=== PATIENT | female | born 1965 | race Caucasian/White ===

== ENCOUNTER → 2022-06-13 14:21 | Outpatient (BNVA) | payer MEDICARE, SELFPAY | PROVIDERS: PCP Nurse Practitioner Family; Visit Provider Nurse Practitioner Family | DX: J44.9 Chronic obstructive pulmonary disease, unspecified (principal); F32.A Depression, unspecified; F41.9 Anxiety disorder, unspecified; G47.00 Insomnia, unspecified; E78.5 Hyperlipidemia, unspecified; K21.9 Gastro-esophageal reflux disease without esophagitis; I10 Essential (primary) hypertension; N95.1 Menopausal and female climacteric states; K52.9 Noninfective gastroenteritis and colitis, unspecified; R30.0 Dysuria; R73.9 Hyperglycemia, unspecified; N39.0 Urinary tract infection, site not specified; F17.200 Nicotine dependence, unspecified, uncomplicated | CPT/HCPCS: 80053; 80061 ==

== ENCOUNTER → 2022-06-14 12:17 | Outpatient (BNVA) | payer MEDICARE, SELFPAY | PROVIDERS: PCP Nurse Practitioner Family; Visit Provider Nurse Practitioner Family | DX: J44.9 Chronic obstructive pulmonary disease, unspecified (principal); F41.9 Anxiety disorder, unspecified; F31.30 Bipolar disorder, current episode depressed, mild or moderate severity, unspecified; G47.00 Insomnia, unspecified; E78.5 Hyperlipidemia, unspecified; K21.9 Gastro-esophageal reflux disease without esophagitis; I10 Essential (primary) hypertension; N95.1 Menopausal and female climacteric states; K52.9 Noninfective gastroenteritis and colitis, unspecified; R30.0 Dysuria; R73.9 Hyperglycemia, unspecified; N39.0 Urinary tract infection, site not specified; F17.200 Nicotine dependence, unspecified, uncomplicated | CPT/HCPCS: 83036 ==

== ENCOUNTER → 2022-10-17 13:02 | Outpatient (BNVA) | payer MEDICARE, MEDICAID, SELFPAY | PROVIDERS: PCP Nurse Practitioner Family; Visit Provider Internal Medicine Pulmonary Disease | DX: J44.9 Chronic obstructive pulmonary disease, unspecified (principal); F17.210 Nicotine dependence, cigarettes, uncomplicated | CPT/HCPCS: 99204 ==

== ENCOUNTER 2022-10-28 15:28 | Emergency (ER) | payer MEDICARE, MEDICAID, SELFPAY ==
[2022-10-28 16:12] VITALS: BP 147/68; PULSE 81; RESP 18; TEMP 36.8; O2SAT 91; BMI 35.4
--- NOTE | 2022-10-28 16:27 | XRR_ITS ---
PROCEDURE INFORMATION: Exam: XR Left Knee Exam date and time: 10/28/2022 4:47 PM Age: 57 years old Clinical indication: Injury or trauma; Fall; Blunt trauma; Knee; Left; Injury details: History--fell 2 weeks ago and had some swelling the, not any better, sharp anterior pain; Additional info: Fall injury TECHNIQUE: Imaging protocol: Radiologic exam of the Left knee. Views: 3 views. COMPARISON: No relevant prior studies available. FINDINGS: Bones/joints: Moderate tricompartmental osteoarthritis of the knee. Soft tissues: Small suprapatellar knee joint effusion. XR/XR knee LT 3V* [id number] IMPRESSION: 1. Negative for fracture or dislocation. 2. Moderate tricompartmental osteoarthritis of the knee. 3. Small suprapatellar knee joint effusion.
--- NOTE | 2022-10-28 16:43 | W.ED.FALL ---
HPI - Fall General: Chief Complaint: Fall Stated Complaint: Left knee pain Time Seen by Provider: 10/28/22 16:25 History of Present Illness: Patient is a 57-year-old female comes to the ED with left knee pain. Patient says approximately 2 and half weeks ago she was walking her dog and it caused her to trip and fall. She fell onto her left knee and has been having pain in her left knee ever since. She states that she initially had a lot of swelling after fall but the swelling has improved and gone completely down. The pain has not changed at all and it still constant and worsens when she weightbears. She rates the pain currently a 4 out of 10. Associated symptoms-after fall: Denies abdominal pain, chest pain, headache(s), hematuria or neck pain Review of Systems Const: Denies: fever(s), chills or fatigue Eyes: Denies: change in vision or eye discomfort ENMT: Denies: throat pain, odynophagia, nasal discharge or nasal congestion Card: Denies: chest pain, palpitations, edema, swelling of feet/ankles, dyspnea on exertion or orthopnea Resp: Denies: dyspnea, productive cough or non-productive cough GI: Denies: abdominal pain, nausea, vomiting, diarrhea, constipation or hematochezia : Denies: flank pain, dysuria or hematuria Musc: Reports: extremity pain (Left knee) and limited range of motion (Left knee); Denies: neck pain, back pain or extremity swelling Skin/Breast: Denies: rash or new lesions Neuro: Denies: headache(s), numbness in extremities or weakness in extremities PFS ED PFSH: Medical History Anxiety Depression Smoker Social History Smoking and tobacco status: current every day smoker cigarettes Packs smoked per day: 2 Years cigarettes smoked: 52 [ Other cigarette details: Started at age 5] Physical Exam Const: COMMON NORMALS: patient oriented x3 HENMT: COMMON NORMALS: normocephalic HEAD & SCALP: normocephalic MOUTH: Normal oral and palatal mucosa present THROAT: posterior oropharynx normal and uvula midline Neck/C-Spine: COMMON NORMALS: supple GENERAL: Yes normal visual inspection Resp: COMMON NORMALS: normal respiratory effort, No retractions, No use of accessory muscles and clear to auscultation bilaterally AUSCULTATION: clear to auscultation bilaterally Cardio: COMMON NORMALS: regular rate, regular rhythm, S1 normal heart sound present, S2 normal heart sound present, No gallops present (Cardio), No clicks present (Cardio), No murmurs present (Cardio) and Peripheral pulses 2+ throughout RATE: regular rate RHYTHM: regular rhythm HEART SOUNDS: S1 normal heart sound present and S2 normal heart sound present PERIPHERAL PULSES: Peripheral pulses 2+ throughout GI: COMMON NORMALS: Normal to inspection, nondistended, normoactive bowel sounds present, Soft to palpation, non-tender and no masses PALPATION: Yes Soft to palpation : COMMON NORMALS: Yes no CVA tenderness BLADDER/KIDNEY EXAM: Yes no CVA tenderness Back/Pelvis: COMMON NORMALS: no CVA tenderness Extremity: NARRATIVE EXTREMITY EXAM: Left knee?no visible deformity, ecchymosis or swelling. Mild tenderness over the patella of the knee. Full range of motion. Neurovascular intact distally. No other acute findings noted. Neuro: COMMON NORMALS: patient oriented x3 GAIT: Yes Normal gait present Course Vital Signs: Vital signs: Vital Signs Temperature 98.3 F 10/28/22 16:12 Pulse Rate 81 10/28/22 16:12 Respiratory Rate 18 10/28/22 16:12 Blood Pressure 147/68 10/28/22 16:12 Pulse Oximetry 91 10/28/22 16:12 Oxygen Delivery Me thod 10/28/22 16:12 MDM - Fall Medical Decision Making Patient is a 57-year-old female comes to the ED with left knee pain. Patient says approximately 2 and half weeks ago she was walking her dog and it caused her to trip and fall. She fell onto her left knee and has been having pain in her left knee ever since. She states that she initially had a lot of swelling after fall but the swelling has improved and gone completely down Vitals are stable. Patient appears nontoxic and in no acute distress. Left knee?no visible deformity, ecchymosis or swelling. Mild tenderness over the patella of the knee. Full range of motion. Neurovascular intact distally. No other acute findings noted. X-ray of left knee shows no acute fractures or dislocations but does note some moderate dry compartmental osteoarthritis of the knee. I placed an order with case management for patient referred to Ortho for knee osteoarthritis. She was discharged home with a prescription for meloxicam. Return ED precautions given. Patient understood and agreed with plan. Lab Data Radiology Impressions Knee X-Ray 10/28/22 16:27 IMPRESSION: 1. Negative for fracture or dislocation. 2. Moderate tricompartmental osteoarthritis of the knee. 3. Small suprapatellar knee joint effusion. Discharge Plan Discharge Patient Disposition: Home Clinical Impression: Osteoarthritis of knee Qualifiers: Osteoarthritis type: primary Laterality: left Qualified Code(s): M17.12 - Unilateral primary osteoarthritis, left knee Condition: Stable Prescriptions: New meloxicam 15 mg tablet 15 mg PO DAILY PRN (Reason: pain) Qty: 20 0RF No Action ropinirole 1 mg tablet 1 mg PO DAILY baclofen 10 mg tablet 10 mg PO BID PRN (Reason: pain) tizanidine 4 mg capsule 4 mg PO TID PRN Bevespi Aerosphere 9-4.8 mcg HFA aerosol inhaler 2 puff inhalation BID Qty: 10.7 3RF Rx Instructions: ALTERNATIVE - STIALTO oxcarbazepine 300 mg tablet 300 mg PO BID albuterol sulfate [ProAir HFA] 90 mcg/actuation HFA aerosol inhaler 2 puff inhalation QID PRN (Reason: shortness of breath or wheezing) Qty: 8.5 6RF Latuda 60 mg tablet 60 mg PO DAILY Rx Instructions: must administer with food (at least 350 calories) buspirone 15 mg tablet 15 mg PO TID esomeprazole magnesium [Nexium] 40 mg capsule,delayed release(DR/EC) 40 mg PO DAILY hydroxyzine HCl 50 mg tablet 50 mg PO TID PRN (Reason: itching) duloxetine 60 mg capsule,delayed release(DR/EC) 60 mg PO DAILY doxepin 50 mg capsule 50 mg PO DAILY Rx Instructions: 1-2 AT HS PRN SLEEP diphenhydramine HCl [Benadryl] 25 mg capsule 25 mg PO TID PRN atorvastatin [Lipitor] 40 mg tablet 40 mg PO DAILY 90 Days Qty: 90 1RF montelukast [Singulair] 10 mg tablet 10 mg PO DAILY 90 Days Qty: 90 1RF nebivolol [Bystolic] 5 mg tablet 5 mg PO DAILY 90 Days Qty: 90 1RF Premarin 0.625 mg tablet 0.625 mg PO DAILY 90 Days Qty: 90 1RF dicyclomine 10 mg capsule 10 mg PO TID 30 Days Qty: 90 1RF clonidine HCl 0.1 mg tablet 0.1 mg PO .QHS 90 Days Qty: 90 1RF gabapentin 800 mg tablet 800 mg PO TID Qty: 90 0RF Discharge Orders: Discharge ED (Routine); Ordered 10/28/22 Ordered By: Cesar Norris Referrals: Poppy Carty APN [Primary Care Provider] - Discharge Diet: Regular Discharge Activity: Increase activity as tolerated Patient Instructions: Osteoarthritis (DC) Activity Restrictions/Additional Instructions: Follow-up with medical provider as directed. Case management should contact you in the next several days to set up an appoint with Ortho for follow-up. Take medications as prescribed. Return to the ER or your medical provider if condition worsens. Please read and understand discharge instructions. Thank you for choosing [facility] for your healthcare needs today. Please realize this is an emergency room and that we are providing you with a medical screening exam and this may not be complete and all inclusive of all the testing and or work up that you may need to determine your ailment or severity of your illness. It is very important that you follow up as instructed or that you return to the Emergency Department should you have concerns or if your condition changes or worsens in any way. Coding Level of Care Code ED Director Of Business Services for Blayne Villafana Exam Comprehensive
[2022-10-28] MEDS: ketorolac 60 mg/2 mL INJ IM (16:52)
--- NOTE | 2022-10-31 09:59 | DCPLANNER ---
Addendum entered by Araceli Bedoya 12/06/22 17:38: Patient had follow up appointment with ortho - patient did attend appointment. Addendum entered by Araceli eBdoya 11/03/22 16:42: Patient has a follow up appointment scheduled for Monday, November 28, 2022 at 7:[address] oNrris at ortho. Clinic will call patient with appointment information. Original Note: campaign manager had message to schedule a follow up appointment for patient with ortho. campaign manager sent patients information to the front office staff at ortho. Patients information will be printed and reviewed. Clinic will call patient with appointment information.
== END 2022-10-28 17:27 | disposition home or self-care (01) ==
PROVIDERS: Emergency Provider Physician Assistant; PCP Nurse Practitioner Family
DX: M17.12 Unilateral primary osteoarthritis, left knee (principal); F17.210 Nicotine dependence, cigarettes, uncomplicated
CPT/HCPCS: 73562; 96372; 99284; J1885

== ENCOUNTER 2022-11-02 13:09 | Emergency (ER) | payer MEDICARE, MEDICAID, SELFPAY ==
[2022-11-02 13:19] VITALS: BP 125/75; PULSE 74; RESP 16; TEMP 37.2; O2SAT 95; BMI 35.4
[2022-11-02 13:24] VITALS: BP 125/75; PULSE 74; RESP 16; TEMP 37.2; O2SAT 95
--- NOTE | 2022-11-02 13:39 | XRR_ITS ---
PROCEDURE INFORMATION: Exam: XR Left Hip Exam date and time: 11/02/2022 1:51 PM Age: 57 years old Clinical indication: Injury or trauma; Fall; Blunt trauma (contusions or hematomas); Left; Hip; Additional info: Fall, hip pain TECHNIQUE: Imaging protocol: Radiologic exam of the Left hip. Views: 2 or 3 views hip with pelvis when performed. COMPARISON: No relevant prior studies available. FINDINGS: Bones/joints: There are minimal degenerative changes left hip joint otherwise osseous structures and joint surfaces are unremarkable. There is no fracture, malalignment or underlying osseous lesion evident. Soft tissues: Unremarkable. XR/XR hip LT 2-3V wo/w pel* [id number] IMPRESSION: Minimal degenerative changes left hip joint otherwise unremarkable exam.
--- NOTE | 2022-11-02 13:39 | XRR_ITS ---
PROCEDURE INFORMATION: Exam: XR Left Knee Exam date and time: 11/02/2022 1:51 PM Age: 57 years old Clinical indication: Injury or trauma; Fall; Blunt trauma; Knee; Left; Additional info: Fall, pain TECHNIQUE: Imaging protocol: Radiologic exam of the Left knee. Views: 3 views. COMPARISON: CR XR knee LT 3V* [id number] 10/28/2022 4:47 PM FINDINGS: Bones/joints: There are mild degenerative changes involving the medial knee compartment with some joint space narrowing and subchondral sclerosis. Stable small spur arising from the inferior pole of patella. Remainder of the joint surfaces are preserved. No fracture or malalignment. Soft tissue: No significant joint effusion. XR/XR knee LT 3V* [id number] IMPRESSION: Mild degenerative changes medial knee compartment. No acute abnormalities.
--- NOTE | 2022-11-02 13:41 | ED_ITS ---
HPI - Extremity Injury (Lower) General: Chief Complaint: Extremity Injury, Lower Stated Complaint: right side hip and kinee in pain. Time Seen by Provider: 11/02/22 13:32 Source: patient Mode of arrival: ambulatory Limitations: no limitations History of Present Illness: StatesPatient is a 57-year-old female who presents to ED today with a complaint of left knee and left hip pain after a fall 2 days ago. She fell because her dog tripped her. Patient was seen in our ED on 10/28 with a very similar story of her puppy tripping her. She had x-rays of the left knee performed which showed no fracture but did show tricompartment osteoarthritis. Patient was given meloxicam. She states these did not seem to help with her pain. Patient has been ambulatory without assistance on her leg. She denies striking her head, LOC, neck or back pain. MD complaint: hip injury and knee injury Onset (ago): day(s) Place: street/outdoors Severity: moderate Relieving factors: immobilization Exacerbating factors: weight bearing, movement and palpation Context: fall Associated symptoms: Reports no associated symptoms Other symptoms: none Review of Systems Musc: Reports: joint pain (L knee) and joint swelling (L knee); Denies: neck pain, back pain, extremity pain or extremity swelling Neuro: Denies: headache(s), numbness in extremities, weakness in extremities, sensory changes or difficulty walking PFSH ED 2 PFSH: Medical History Anxiety Depression Smoker Social History Smoking and tobacco status: current every day smoker cigarettes Packs smoked per day: 2 Years cigarettes smoked: 52 [ Other cigarette details: Started at age 5] Physical Exam Const: COMMON NORMALS: no acute distress, patient oriented x3, no limitations, alert and well nourished GENERAL APPEARANCE: cooperative Neck/C-Spine: CERVICAL SPINE: Yes cervical ROM normal, No pain with cervical ROM and No Cervical spine tenderness Back/Pelvis: COMMON NORMALS: thoracic and lumbar spine normal to inspection, no thoracic nor lumbar tenderness and thoraco-lumbar ROM normal Extremity: COMMON NORMALS: full ROM, capillary refill normal, no calf tenderness and no pedal edema GENERAL: Yes normal exam except as noted RIGHT LOWER EXTREMITY: Yes hip joint (small area of ecchymosis noted) and Yes knee joint (pain seems exaggerated in regards to clinical findings) Right knee: Yes ROM (normal) and Yes neurovascular exam (normal) Neuro: COMMON NORMALS: patient oriented x3, moves all extremities, no focal motor deficits, no sensory deficits noted and gait normal SENSORIUM/ORIENTATION: Yes alert Course Vital Signs: Vital signs: Vital Signs Temperature 98.9 F 11/02/22 13:24 Pulse Rate 74 11/02/22 13:24 Respiratory Rate 16 11/02/22 13:24 Blood Pressure 125/75 11/02/22 13:24 Pulse Oximetry 95 11/02/22 13:24 Oxygen Delivery Me thod 11/02/22 13:24 MDM - Extremity Injury (Lower) Medical Decision Making XRs negative. Patient can follow up with PCP in 1-2 weeks if pain persists. Lab Data Radiology Impressions Hip/Pelvis X-Ray 11/02/22 13:39 IMPRESSION: Minimal degenerative changes left hip joint otherwise unremarkable exam. Knee X-Ray 11/02/22 13:39 IMPRESSION: Mild degenerative changes medial knee compartment. No acute abnormalities. Discharge Plan Discharge Patient Disposition: Home Clinical Impression: Fall on same level from tripping Contusion of left hip Qualifiers: Encounter type: initial encounter Qualified Code(s): S70.02XA - Contusion of left hip, initial encounter Contusion of left knee Qualifiers: Encounter type: initial encounter Qualified Code(s): S80.02XA - Contusion of left knee, initial encounter Condition: Stable Prescriptions: New acetaminophen-codeine 300-30 mg tablet 1 tab PO Q6H PRN (Reason: pain) Qty: 12 0RF No Action ropinirole 1 mg tablet 1 mg PO DAILY baclofen 10 mg tablet 10 mg PO BID PRN (Reason: pain) tizanidine 4 mg capsule 4 mg PO TID PRN Bevespi Aerosphere 9-4.8 mcg HFA aerosol inhaler 2 puff inhalation BID Qty: 10.7 3RF Rx Instructions: ALTERNATIVE - STIALTO oxcarbazepine 300 mg tablet 300 mg PO BID albuterol sulfate [ProAir HFA] 90 mcg/actuation HFA aerosol inhaler 2 puff inhalation QID PRN (Reason: shortness of breath or wheezing) Qty: 8.5 6RF Latuda 60 mg tablet 60 mg PO DAILY Rx Instructions: must administer with food (at least 350 calories) buspirone 15 mg tablet 15 mg PO TID esomeprazole magnesium [Nexium] 40 mg capsule,delayed release(DR/EC) 40 mg PO DAILY hydroxyzine HCl 50 mg tablet 50 mg PO TID PRN (Reason: itching) duloxetine 60 mg capsule,delayed release(DR/EC) 60 mg PO DAILY doxepin 50 mg capsule 50 mg PO DAILY Rx Instructions: 1-2 AT HS PRN SLEEP diphenhydramine HCl [Benadryl] 25 mg capsule 25 mg PO TID PRN atorvastatin [Lipitor] 40 mg tablet 40 mg PO DAILY 90 Days Qty: 90 1RF montelukast [Singulair] 10 mg tablet 10 mg PO DAILY 90 Days Qty: 90 1RF nebivolol [Bystolic] 5 mg tablet 5 mg PO DAILY 90 Days Qty: 90 1RF Premarin 0.625 mg tablet 0.625 mg PO DAILY 90 Days Qty: 90 1RF dicyclomine 10 mg capsule 10 mg PO TID 30 Days Qty: 90 1RF clonidine HCl 0.1 mg tablet 0.1 mg PO .QHS 90 Days Qty: 90 1RF gabapentin 800 mg tablet 800 mg PO TID Qty: 90 0RF meloxicam 15 mg tablet 15 mg PO DAILY PRN (Reason: pain) Qty: 20 0RF Discharge Orders: Discharge ED (Routine); Ordered 11/02/22 Ordered By: Latonia Fields Referrals: Carty,Poppy, OPERATIONS TECHNICIAN [Primary Care Provider] - Patient Instructions: Opioid Safety, Pain Management Coding Level of Care Code ED Trust Vault Clerk for Blayne Villafana
[2022-11-02 14:42] VITALS: BP 123/78; PULSE 73; RESP 16; O2SAT 96
== END 2022-11-02 14:43 | disposition home or self-care (01) ==
PROVIDERS: Emergency Provider Physician Assistant; PCP Nurse Practitioner Family
DX: S70.02XA Contusion of left hip, initial encounter (principal); S80.02XA Contusion of left knee, initial encounter; W01.0XXA Fall on same level from slipping, tripping and stumbling without subsequent striking against object, initial encounter; F17.210 Nicotine dependence, cigarettes, uncomplicated
CPT/HCPCS: 73502; 73562; 99283

== ENCOUNTER 2022-11-25 06:14 | Outpatient (CLI) | payer MEDICARE, MEDICAID, SELFPAY ==
--- NOTE | 2022-11-25 06:30 | CT_ITS ---
WS: [id number] CT CHEST WITHOUT INTRAVENOUS CONTRAST HISTORY: f/u right medial segment consolidation seen in 03/16 CT TECHNIQUE: Contiguous 5 mm axial imaging performed on the thorax. Coronal and sagittal reformats are submitted. All CT scans at [facility] use at least one of these dose optimization techniques: automated exposure control; mA and/or kV adjustment per patient size (includes targeted exams where dose is matched to clinical indication); or iterative reconstruction. CONTRAST: None DLP: 413.91 mGy.cm COMPARISON: 02/23/2022 Lungs and central airway: Improved aeration RIGHT middle lobe. Very minimal persistent atelectasis an d pleural thickening along the fissures. There is still an area of subsegmental atelectasis and bronc hial dilatation involving the medial inferior segment of the RIGHT upper lobe. Very mild atelectasis extends along the RIGHT minor fissure. Subsegmental areas of very thin linear atelectasis LEFT lower lobe. Very thin linear atelectasis RIGHT lower lobe at the lung base. No mass or nodules. No pneumoni a. Pleura: Normal. No pleural effusion. Heart and pericardium: Normal size heart with no pericardial effusion. Mediastinum and tsering: No mediastinum or hilar adenopathy. Vessels: Minimal atherosclerotic plaque thoracic aorta. Normal size pulmonary artery. Chest wall and lower neck: No soft tissue masses. Upper abdomen: Prior cholecystectomy. Osseous structures: Mild increase in thoracic kyphosis. CT/CT chest wo con [id number] IMPRESSION: 1. Improved atelectasis RIGHT middle lobe. Minimal pleural thickening along th e fissure. 2. Mild bronchial wall thickening and bronchial dilatation in the medial segme nt of the inferior RIGHT upper lobe. 3. Additional bandlike areas of atelectasis in the lower lung da silva. 4. No pneumonia. 5. Prior cholecystectomy.
== END 2022-11-25 06:15 | disposition home or self-care (01) ==
LOC: RAD 06:15
PROVIDERS: PCP Nurse Practitioner Family; Visit Provider Internal Medicine Pulmonary Disease
DX: R91.8 Other nonspecific abnormal finding of lung field (principal); J98.11 Atelectasis
CPT/HCPCS: 71250

== ENCOUNTER → 2022-11-28 07:36 | Outpatient (BNVA) | payer MEDICARE, MEDICAID, SELFPAY | PROVIDERS: PCP Nurse Practitioner Family; Referring Provider Physician Assistant; Visit Provider Student in an Organized Health Care Education/Training Program | DX: M70.62 Trochanteric bursitis, left hip (principal); M17.12 Unilateral primary osteoarthritis, left knee; M53.3 Sacrococcygeal disorders, not elsewhere classified | CPT/HCPCS: 20610; 99204; J3301 ==

== ENCOUNTER → 2022-12-23 09:05 | Outpatient (BNVA) | payer MEDICARE, MEDICAID, SELFPAY | PROVIDERS: PCP Nurse Practitioner Family; Visit Provider Student in an Organized Health Care Education/Training Program | DX: M25.562 Pain in left knee (principal) | CPT/HCPCS: 20610; 99213; J3301 ==

== ENCOUNTER → 2023-01-06 11:04 | Outpatient (BNVA) | payer MEDICARE, MEDICAID, SELFPAY | PROVIDERS: PCP Nurse Practitioner Family; Visit Provider Student in an Organized Health Care Education/Training Program | DX: M17.12 Unilateral primary osteoarthritis, left knee (principal) | CPT/HCPCS: 99213 ==

== ENCOUNTER 2023-01-24 06:05 | Outpatient (CLI) | payer MEDICARE, MEDICAID, SELFPAY ==
--- NOTE | 2023-01-24 06:15 | USCV_ITS ---
Natalie Burnham Age: 57 Gender: F : 1965 Exam Date: 01/24/2023 06:24 Ordering Phys: Ghulam Norris DO Technologist: [place] [facility] [place]: lt leg pain and swelling PROCEDURES: Venous duplex imaging was performed in only the left lower extremity. The following venous structures were evaluated: common femoral vein, profunda vein, proximal portion of the greater saphenous vein, superficial femoral vein, and the popliteal vein. In addition, the posterior tibial and peroneal trunk were evaluated. FINDINGS: Normal 2-D Doppler and augmentation and compressibility throughout the lower extremity venous structures. Additional imaging through the proximal calf veins also reveals no thrombus. Limited evaluation of the greater saphenous vein is patent with no thrombus. CONCLUSIONS No evidence of left lower extremity DVT. Sunny Pettit MD (Electronically Signed) Final Date: 25 Jan 2023 12:15 S
== END 2023-01-24 06:06 | disposition home or self-care (01) ==
LOC: RAD 06:10
PROVIDERS: PCP Nurse Practitioner Family; Visit Provider Student in an Organized Health Care Education/Training Program
DX: M79.662 Pain in left lower leg (principal); M79.89 Other specified soft tissue disorders
CPT/HCPCS: 93971

== ENCOUNTER 2023-02-15 08:21 | Outpatient (CLI) | payer MEDICARE, MEDICAID, SELFPAY ==
--- NOTE | 2023-02-15 08:37 | XR_ITS ---
WS: [id number] Lumbar spine, 5 views including both obliques, 02/15/2023 Clinical Data: DDD LUMBAR Comparison: None. Findings: No compression fractures or subluxation is seen. No disc space narrowing is seen. There is minimal no rmal anterior osteoarthritic spurring at L2-L4. The transverse processes and SI joints are normal. The oblique films show no spondylolysis. There are cholecystectomy clips in the right upper quadrant. XR/XR lumbar spine min 4V [id number] Impression: 1. Minimal osteoarthritis L2-L4. 2. Negative for spondylolysis.
== END 2023-02-15 08:22 | disposition home or self-care (01) ==
PROVIDERS: PCP Nurse Practitioner Family; Visit Provider General Practice
DX: M51.36 Other intervertebral disc degeneration, lumbar region (principal); M47.816 Spondylosis without myelopathy or radiculopathy, lumbar region
CPT/HCPCS: 72110

== ENCOUNTER 2023-05-26 06:00 | Outpatient (RCR) | payer MEDICARE, MEDICAID, SELFPAY | END 2023-06-24 23:59 | disposition home or self-care (01) | LOC: TPT 06:00 | PROVIDERS: Visit Provider General Practice | DX: G89.4 Chronic pain syndrome (principal) | CPT/HCPCS: 97110; 97163 ==

== ENCOUNTER 2023-06-25 06:00 | Outpatient (RCR) | payer MEDICARE, MEDICAID, SELFPAY | END 2023-07-25 23:59 | disposition home or self-care (01) | LOC: TPT 06:00 | PROVIDERS: Visit Provider General Practice | DX: R26.9 Unspecified abnormalities of gait and mobility (principal); Z72.0 Tobacco use; E66.9 Obesity, unspecified; M17.9 Osteoarthritis of knee, unspecified; M51.36 Other intervertebral disc degeneration, lumbar region; M47.27 Other spondylosis with radiculopathy, lumbosacral region; Z79.891 Long term (current) use of opiate analgesic; R52 Pain, unspecified | CPT/HCPCS: 97110 ==